=== PATIENT | female | born 1955 | race Caucasian/White ===

== ENCOUNTER → 2016-02-23 | Day surgery (SDC) | payer OTHER, MEDICARE ==
--- NOTE | 2016-02-14 09:42 | History & Physical Pre-Op ---
General Information and HPI History of Present Illness: Galina is a 60-year-old female with a long-standing was complaining of significant arthritis to the first metatarsophalangeal joint. The patient has undergone an extended course of conservative care, including shoe gear and activity modification rest, immobilization and courses of NSAIDs. None of this is yielded her any significant relief. The patient presents today for preoperative surgical consultation. Allergies/Medications Allergies: Coded Allergies: Penicillins (UNKNOWN 10/12/15) carbamide peroxide (From Debrox) (RASH 10/12/15) erythromycin base (HIVES 10/12/15) venom-honey bee (bee venom (honey bee)) (UNKNOWN 10/12/15) Uncoded Allergies: SPIDERS (UNKNOWN 10/14/11) Home Med list Ciprofloxacin (Cipro) 500 MG TABLET 1 TAB PO BID INFN Estradiol 1 MG TAB 1 TAB PO DAILY HRT (Reported) Gabapentin 800 MG TABLET 1 TAB PO TID FIBROMYALGIA (Reported) Metronidazole (Flagyl) 500 MG TAB 500 MG PO BID INFN Multivitamin (Multiple Vitamins) 1 EACH TABLET 1 TAB PO DAILY SUPPLEMENT ( Reported) Ondansetron (Zofran 4 MG Tablet) 4 MG TAB 1 TAB PO Q6 PRN NAUSEA OXYCODONE HCL/ACETAMINOPHEN (Percocet 5-325 MG Tablet) 325 MG/5 MG TAB 1-2 TAB PO Q4-6 PRN PRN PAIN OXYCODONE HCL/ACETAMINOPHEN (Percocet 5-325 MG Tablet) 325 MG/5 MG TAB 1-2 TAB PO Q4-6 PRN PRN PAIN Oxycodone HCl/Acetaminophen (Percocet 5-325 MG Tablet) 1 EACH TABLET 1-2 TAB PO Q6P PRN PAIN TRAMADOL HCL (Tramadol HCl) 50 MG TABLET 1 TAB PO TID PAIN (Reported) Past History Medical History Neurological: NONE EENT: NONE Cardiovascular: NONE Respiratory: NONE Gastrointestinal: NONE Hepatic: NONE Renal: NONE Musculoskeletal: NONE Psychiatric: NONE Endocrine: NONE Blood Disorders: NONE Cancer(s): NONE PAEDIATRIC SURGEON/Reproductive: NONE Surgical History Pertinent Surgical History: non-contributory Review of Systems Review of Systems: Unremarkable except for that noted history of present illness Exam & Diagnostic Data Physical Exam: Lungs clear bilaterally. Heart sounds rate and rhythm regular. Lower extremity physical exam demonstrates intact pedal pulses bilaterally. Pulses dorsalis pedis and posterior tibial arteries are palpable bilaterally. Patient without any sensory motor deficits. Deep tendon reflexes grossly intact. Patient noted assuming pain with palpation and range of motion through the left first metatarsophalangeal joint. There is significant significant crepitus noted with range of motion. The range of motion is noted to be diminished both dorsiflexion and plantarflexion. 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 A lengthy discussion reviewing both surgical and conservative options was held the patient at bedside and the patient elects to go forward surgery despite the risks. As Ranked By This Provider Problem List: 1. Hallux rigidus of left foot Attending MD Review Statement Attending Statement Attending MD Statement: examined this patient
[~2016-02-23] VITALS: Ht 157.5 cm; Wt 47.6 kg
[~2016-02-23] MED LIST: CIPRO 500MG TA500 MG PO; ESTRADIOL1 MG PO; FLAG500 PO; FLEXERIL 5MG TAB5 MG PO; GABAPENTIN800 MG PO; MOTRIN 400MG (400 MG PO; MULTIVITAMIN1 TAB PO; PERCOCET 325 MG1 TA2 PO; PERCOCET 5-3251 EACH PO; TRAMADOL HCL50 MG PO; ZOFRAN 4 MG TABL4 MG PO
--- NOTE | 2016-02-24 11:49 | Operative Report ---
Operative/Inv Procedure Report Surgery Date: 02/23/16 Name of Procedure: 1 1st mpj fusion left foot 2 intraoperative nonweightbearing cast application 3 intraoperative administration of ankle block anesthesia Pre-Operative Diagnosis: 1 severe degenerative joint disease first MPJ left foot Post-Operative Diagnosis: The same Estimated Blood Loss: scant Surgeon/Building Construction Foreman: YOSELIN TANNER DPM Anesthesia: moderate sedation, block Operative/Procedure Note Note: After obtaining informed consent the patient was brought to the operating room and placed on the operating table in supine position. The patient isn't securely fastened to the operating table utilizing a safety belt. After administration of IV sedation, 10 mL of 0.5% Marcaine plain was infiltrated about the patient's left ankle. A well-padded ankle tourniquet was placed about the patient's left lower extremity. Left foot and ankle within scrubbed prepped and draped in usual aseptic manner. Left lower extremity is elevated to examine to limb, which point the ankle tourniquet was inflated foot 250 mmHg. Attention directed dorsal aspect of the left foot where 6 cm linear incision was made just medial to the course of the extensor listless longus tendon. The skin was as a 15 blade and deepened subtenons tissues. A linear capsulotomy was performed exposing the joint, which is noted to be severely arthritic with very little cartilage identified on either the head of the first metatarsal the base of proximal phalanx. A curet was utilized to denude the surfaces of the metatarsal and the phalanx of any remaining cartilage. The proximal and distal sides of the joint were then fenestrated with 62 K wire. The toe was then oriented in a proper position for fusion with H 10 of dorsiflexion and 10 of abduction. The knee was then fixated utilizing 2 crossing fully threaded cortical screws. The reduction and the placement the hardware was verified under intraoperative fluoroscopy. Both were noted to be optimal. The wound was then irrigated with cuff Svensson normal sterile saline. The capture structures were then reapproximated with 3-0 Vicryl and the subtenons tissues reports a 4-0 Vicryl. The skin edges reprepped with 4-0 nylon. Incision was dressed with Xeroform 4 x 4's Kerlix and an Johnathan wrap. A junk Perera compressive dressing and posterior splint was then applied to the patient's left lower extremity. The patient was noted tolerate both procedure and anesthesia well and the patient was transported from the operating room to recovery by sent stable best assess intact to all digits left foot.
== END ==
LOC: STS 02-16 07:00
DX: M19.072 Primary osteoarthritis, left ankle and foot (principal); M20.22 Hallux rigidus, left foot; K21.9 Gastro-esophageal reflux disease without esophagitis
CPT/HCPCS: C1713; J1885; J2001; J2250